=== PATIENT | female | born 1990 | race American Indian/Alaskan Native ===

== ENCOUNTER 2019-04-23 16:31 | Inpatient (IN) | payer MEDICAID ==
[2019-04-23] MEDS ORDERED: LACTATED RINGERS 1,000 ML ONE (17:18)
[2019-04-23] MEDS: LACTATED RINGERS 1,000 ML IV SCH (17:45)
[2019-04-23] MEDS ORDERED: TERBUTALINE 1 MG/1 ML INJ IVP PRN (18:09)
[2019-04-23] MEDS ORDERED: MINERAL OIL 30 ML ORAL LIQD PO PRN (18:09)
[2019-04-23] MEDS ORDERED: AMPICILLIN/NS 2 GM/100 ML 2 GM/100 ML BAG IV ONE (18:09)
[2019-04-23] MEDS ORDERED: BUTORPHANOL 2 MG/1 ML INJ IV PRN (18:09)
[2019-04-23] MEDS ORDERED: ePHEDrine SULFATE 50 MG/1 ML INJ IV PRN (18:09)
[2019-04-23] MEDS ORDERED: LIDOCAINE (2%) 20 MG/1 ML VIAL 20 ML MDV INFILTRATI ONE (18:09)
[2019-04-23] MEDS ORDERED: ONDANSETRON 4 MG/2 ML INJ IV PRN (18:09)
[2019-04-23] MEDS ORDERED: NALOXONE 0.4 MG/1 ML INJ IV PRN (18:09)
[2019-04-23] MEDS ORDERED: TERBUTALINE 1 MG/1 ML INJ SUB-Q PRN (18:09)
--- NOTE | 2019-04-23 18:19 | History and Physical Report ---
History of Present Illness Date of examination: 04/23/19 Date of admission: 04/23/19 16:31 Chief complaint: Sent from the office of [facility] with the recommendation of induction of labor due CHTN with possible superimposed Preeclampsia. Denies HAs, visual changes, and N&V. History of present illness: Early entry to care, co-managed with [facility] due to CHTN, taking Labetolol 100mg PO BID and ASA 81mg daily. course complicated by Anemia, a UTI (GBS), Vitamin D Deficiency, and a abnormal 1hour GTT, followed by a normal 3 hour GTT. Past History Past Medical History: hypertension Past Surgical History: no surgical history Family/Genetic History: none Social history: no significant social history, single - Obstetrical History Expected Date of Delivery: 04/30/19 Actual Gestation: 39 Week(s) 0 Day(s) : 1 Medications and Allergies Allergies Allergy/AdvReac Type Severity Reaction Status Date / Time No Known Allergies Allergy Verified 04/23/19 17:42 Home Medications Medication Instructions Recorded Confirmed Last Taken Type Aspirin [Aspirin BABY CHEW TAB] 81 mg PO QDAY 04/23/19 04/23/19 04/09/19 09:00 History Labetalol [Labetalol 200mg TAB] 200 mg PO BID 04/23/19 04/23/19 04/23/19 13:00 History Pnv,Calcium 72/Iron,Carb/Folic 1 each PO DAILY 04/23/19 04/23/19 04/23/19 History [ Plus Iron Tablet] 0900 Active Meds: Active Medications Butorphanol Tartrate (Stadol) 2 mg IV Q2H PRN PRN Reason: Pain , Severe (7-10) Ephedrine Sulfate (Ephedrine Sulfate) 10 mg IV Q2M PRN PRN Reason: Hypotension Oxytocin/Sodium Chloride (Pitocin/Ns 20 Unit/1000ml Drip) 20 units in 1,000 mls @ 125 mls/hr IV DIRECT DAYANARA Oxytocin/Sodium Chloride (Pitocin/Ns 30 Unit/500ml) 30 units in 500 mls @ 2 mls/hr IV TITR DAYANARA; Protocol Lactated Ringer's (Lactated Ringers) 1,000 mls @ 125 mls/hr IV DIRECT DAYANARA Ampicillin Sodium (Ampicillin/Ns 1 Gm/50 Ml) 1 gm in 50 mls @ 100 mls/hr IV Q4HR [facility]; Protocol Ampicillin Sodium (Ampicillin/Ns 2 Gm/100 Ml) 2 gm in 100 mls @ 100 mls/hr IV ONCE ONE; Protocol Stop: 04/23/19 19:08 Lidocaine (Xylocaine 2%) 20 ml INFILTRATI ONCE ONE Stop: 04/23/19 18:10 Mineral Oil (Mineral Oil) 30 ml PO QHS PRN PRN Reason: Constipation Naloxone HCl (Narcan 0.4 Mg/1 Ml) 0.1 mg IV Q2MIN PRN PRN Reason: Res Rate </= 8 or 02 SAT < 92% Ondansetron HCl (Zofran) 4 mg IV Q8H PRN PRN Reason: Nausea And Vomiting Terbutaline Sulfate (Brethine) 0.25 mg SUB-Q ONCE PRN PRN Reason: Hyperstimulation/Hypertonicity Terbutaline Sulfate (Brethine) 0.25 mg IVP ONCE PRN PRN Reason: Hyperstimulation/Hypertonicity Review of Systems All systems: negative - Vital Signs Vital signs: Vital Signs Temp Resp 98.2 F 12 04/23/19 16:45 04/23/19 16:45 Temp Pulse Resp BP Pulse Ox 98.2 F 80 12 139/93 97 04/23/19 16:45 04/23/19 18:11 04/23/19 16:45 04/23/19 18:08 04/23/19 18:11 - Physical Exam Breasts: Positive: normal Cardiovascular: Regular rate Lungs: Positive: Clear to auscultation, Normal air movement Abdomen: Positive: normal appearance, soft, normal bowel sounds Genitourinary (Female): Positive: normal external genitalia, normal perenium Vagina: Positive: normal moisture Uterus: Positive: enlarged Anus/Rectum: Positive: normal perianal skin Extremities: Positive: normal - Obstetrical FHR: category 1 Uterine Contraction Monitor Mode: External Cervical Dilatation: 0.5 (VTX, Intact) Cervical Effacement Percentage: 20 station: -3 Uterine Contraction Frequency (min): 2-3 Uterine Contraction Pattern: Regular Uterine Tone Measurement Phase: Resting Uterine Contraction Intensity: Mild Results All other labs normal. Assessment and Plan A: IUP @ 39 Weeks Category I Tracing CHTN Maternal Obesity GBS Positive P: Admit to L&D per Routine Orders PIH Labs GBS Prophylaxis Pitocin Induction
[2019-04-23] MEDS ORDERED: OXYTOCIN DRIP 30 UNITS/500 ML BAG IV SCH (19:00)
[2019-04-23] MEDS ORDERED: OXYTOCIN 20 UNIT/1000ML DRIP 20 UNITS/1,000 ML BAG IV SCH (19:00)
[2019-04-23 19:22] LABS: Hematocrit 43.7 % (30.3-42.9); Hemoglobin 14.7 gm/dl (10.1-14.3); Mean Corpuscular HGB Conc 34 % (30-34); Mean Corpuscular Volume 90 fl (79-97); Platelet Count 252 K/mm3 (140-440); Red Blood Count 4.86 M/mm3 (3.65-5.03); Red Cell Distribution Width 14.4 % (13.2-15.2)
[2019-04-23 19:46] LABS: Alanine Aminotransferase 28 units/L (7-56); Uric Acid 3.5 mg/dL (3.5-7.6)
[2019-04-23 20:03] LABS: Bacteria,Urine 1+ /HPF (Negative); Bilirubin,Urine NEG (Negative); Blood,Urine NEG (Negative); Color,Urine Yellow (Yellow); Mucus,Urine FEW /HPF; Protein,Urine <15 mg/dL mg/dL (Negative); Urobilinogen,Urine < 2.0 mg/dL (<2.0)
[2019-04-23] MEDS: AMPICILLIN/NS 1 GM/50 ML 1 GM/50 ML BAG IV SCH (22:00)
[2019-04-24] MEDS ORDERED: ACETAMINOPHEN 325 MG TAB ONE (01:37)
[2019-04-24] MEDS: LACTATED RINGERS 1,000 ML IV SCH ×3 (01:45→18:27)
[2019-04-24] MEDS ORDERED: D5W/LACTATED RINGERS 1,000 ML IV ONE (03:11)
[2019-04-24] MEDS: AMPICILLIN/NS 1 GM/50 ML 1 GM/50 ML BAG IV SCH ×4 (03:45→19:07)
[2019-04-24] MEDS ORDERED: D5W/LACTATED RINGERS 1,000 ML IV SCH (04:00)
[2019-04-24] MEDS ORDERED: LACTATED RINGERS 1,000 ML ONE (08:33)
[2019-04-24] MEDS ORDERED: DINOPROSTONE 10 MG VAG SUPP VG ONE ×2 (11:00→23:39)
[2019-04-25] MEDS: LACTATED RINGERS 1,000 ML IV SCH (06:32)
[2019-04-25] MEDS ORDERED: OXYTOCIN 20 UNIT/1000ML DRIP 20 UNITS/1,000 ML BAG IV SCH (09:00)
[2019-04-25] MEDS ORDERED: LACTATED RINGERS 1,000 ML IV SCH (09:00)
--- NOTE | 2019-04-25 09:03 | Progress Note ---
Subjective - Subjective Date of service: 04/25/19 Principal diagnosis: Preop Note Interval history: Preoperative diagnosis: IUP at 39+2/7 weeks, failed IOL for CHTN, intolerance to labor Planned procedure: Primary low transverse section via pfannenstiel incision Surgeon: Dr Adry Puente Informed consents obtained, patient NPO and special education secretary to OR for procedure. Objective - Vital Signs Vital Signs: Vital Signs - 12hr 04/24/19 04/24/19 04/24/19 21:02 21:07 21:12 Temperature Pulse Rate 64 64 64 Respiratory Rate Blood Pressure O2 Sat by Pulse 100 100 100 Oximetry 04/24/19 04/24/19 04/24/19 21:17 21:20 21:22 Temperature Pulse Rate 67 67 67 Respiratory Rate Blood Pressure 142/85 O2 Sat by Pulse 100 100 Oximetry 04/24/19 04/24/19 04/24/19 21:27 21:31 21:36 Temperature Pulse Rate 63 69 69 Respiratory Rate Blood Pressure O2 Sat by Pulse 99 83 L 86 Oximetry 04/24/19 04/24/19 04/24/19 21:41 21:46 21:51 Temperature Pulse Rate 69 64 64 Respiratory Rate Blood Pressure O2 Sat by Pulse 100 100 99 Oximetry 04/24/19 04/24/19 04/24/19 21:56 22:01 22:06 Temperature Pulse Rate 65 68 63 Respiratory Rate Blood Pressure O2 Sat by Pulse 97 98 100 Oximetry 04/24/19 04/24/19 04/24/19 22:11 22:16 22:19 Temperature Pulse Rate 62 67 59 L Respiratory Rate Blood Pressure 126/69 O2 Sat by Pulse 99 99 Oximetry 04/24/19 04/24/19 04/24/19 22:21 22:26 22:31 Temperature Pulse Rate 60 71 64 Respiratory Rate Blood Pressure O2 Sat by Pulse 100 100 99 Oximetry 04/24/19 04/24/19 04/24/19 22:36 22:41 22:46 Temperature Pulse Rate 62 61 72 Respiratory Rate Blood Pressure O2 Sat by Pulse 98 100 100 Oximetry 04/24/19 04/24/19 04/24/19 22:51 22:56 23:01 Temperature Pulse Rate 66 63 63 Respiratory Rate Blood Pressure O2 Sat by Pulse 98 99 99 Oximetry 04/24/19 04/24/19 04/24/19 23:03 23:06 23:10 Temperature Pulse Rate 73 68 65 Respiratory Rate Blood Pressure 133/69 O2 Sat by Pulse 100 84 Oximetry 04/24/19 04/24/19 04/24/19 23:11 23:16 23:19 Temperature Pulse Rate 73 74 66 Respiratory Rate Blood Pressure 121/60 O2 Sat by Pulse 84 82 L Oximetry 04/24/19 04/24/19 04/24/19 23:21 23:26 23:28 Temperature Pulse Rate 74 79 Respiratory Rate Blood Pressure O2 Sat by Pulse 96 98 86 Oximetry 04/24/19 04/24/19 04/24/19 23:31 23:36 23:41 Temperature Pulse Rate 76 63 69 Respiratory Rate Blood Pressure O2 Sat by Pulse 97 97 97 Oximetry 04/25/19 04/25/19 04/25/19 00:17 00:18 00:22 Temperature Pulse Rate 89 99 H 81 Respiratory Rate Blood Pressure 133/67 O2 Sat by Pulse 98 93 98 Oximetry 04/25/19 04/25/19 04/25/19 00:27 00:32 00:37 Temperature Pulse Rate 76 102 H 91 H Respiratory Rate Blood Pressure O2 Sat by Pulse 99 97 97 Oximetry 04/25/19 04/25/19 04/25/19 00:42 00:44 01:00 Temperature 97.5 F L Pulse Rate 105 H 53 L 95 H Respiratory 16 Rate Blood Pressure O2 Sat by Pulse 97 82 L 96 Oximetry 04/25/19 04/25/19 04/25/19 01:05 01:10 01:15 Temperature Pulse Rate 94 H 81 81 Respiratory Rate Blood Pressure O2 Sat by Pulse 99 99 99 Oximetry 04/25/19 04/25/19 04/25/19 01:19 01:20 01:25 Temperature Pulse Rate 83 77 81 Respiratory Rate Blood Pressure 133/75 O2 Sat by Pulse 100 99 Oximetry 04/25/19 04/25/19 04/25/19 01:30 01:35 01:40 Temperature Pulse Rate 73 75 76 Respiratory Rate Blood Pressure O2 Sat by Pulse 99 99 100 Oximetry 04/25/19 04/25/19 04/25/19 01:45 01:50 01:55 Temperature Pulse Rate 80 84 78 Respiratory Rate Blood Pressure O2 Sat by Pulse 99 100 100 Oximetry 04/25/19 04/25/19 04/25/19 02:00 02:05 02:10 Temperature Pulse Rate 74 73 73 Respiratory Rate Blood Pressure O2 Sat by Pulse 100 100 100 Oximetry 04/25/19 04/25/19 04/25/19 02:15 02:20 02:25 Temperature Pulse Rate 81 68 76 Respiratory Rate Blood Pressure 133/86 O2 Sat by Pulse 100 99 99 Oximetry 04/25/19 04/25/19 04/25/19 02:30 02:35 02:40 Temperature Pulse Rate 67 71 68 Respiratory Rate Blood Pressure O2 Sat by Pulse 100 100 100 Oximetry 04/25/19 04/25/19 04/25/19 02:45 02:50 02:55 Temperature Pulse Rate 98 H 104 H 71 Respiratory Rate Blood Pressure O2 Sat by Pulse 100 98 99 Oximetry 04/25/19 04/25/19 04/25/19 03:00 03:05 03:10 Temperature Pulse Rate 73 70 72 Respiratory Rate Blood Pressure O2 Sat by Pulse 99 99 99 Oximetry 04/25/19 04/25/19 04/25/19 03:15 03:19 03:28 Temperature Pulse Rate 75 88 Respiratory Rate Blood Pressure O2 Sat by Pulse 100 87 82 L Oximetry 04/25/19 04/25/19 04/25/19 03:29 03:34 03:36 Temperature Pulse Rate 93 H 73 88 Respiratory Rate Blood Pressure 138/76 O2 Sat by Pulse 100 99 Oximetry 04/25/19 04/25/19 04/25/19 03:39 03:44 03:49 Temperature Pulse Rate 100 H 80 85 Respiratory Rate Blood Pressure O2 Sat by Pulse 99 97 97 Oximetry 04/25/19 04/25/19 04/25/19 03:54 03:59 04:04 Temperature Pulse Rate 74 76 71 Respiratory Rate Blood Pressure O2 Sat by Pulse 96 96 96 Oximetry 04/25/19 04/25/19 04/25/19 04:09 04:14 04:19 Temperature Pulse Rate 71 74 81 Respiratory Rate Blood Pressure 141/65 O2 Sat by Pulse 96 95 96 Oximetry 04/25/19 04/25/19 04/25/19 04:24 04:29 04:34 Temperature Pulse Rate 73 70 67 Respiratory Rate Blood Pressure O2 Sat by Pulse 96 99 100 Oximetry 04/25/19 04/25/19 04/25/19 04:39 04:44 04:46 Temperature Pulse Rate 67 79 Respiratory Rate Blood Pressure O2 Sat by Pulse 100 100 90 Oximetry 04/25/19 04/25/19 04/25/19 04:50 04:52 04:55 Temperature Pulse Rate 82 42 L 70 Respiratory Rate Blood Pressure O2 Sat by Pulse 81 L 0 L 99 Oximetry 04/25/19 04/25/19 04/25/19 05:00 05:05 05:10 Temperature Pulse Rate 58 L 61 65 Respiratory Rate Blood Pressure O2 Sat by Pulse 99 99 100 Oximetry 04/25/19 04/25/19 04/25/19 05:15 05:19 05:20 Temperature Pulse Rate 58 L 63 63 Respiratory Rate Blood Pressure 112/68 O2 Sat by Pulse 100 100 Oximetry 04/25/19 04/25/19 04/25/19 05:25 05:30 05:35 Temperature Pulse Rate 64 64 59 L Respiratory Rate Blood Pressure O2 Sat by Pulse 99 99 100 Oximetry 04/25/19 04/25/19 04/25/19 05:40 05:45 05:50 Temperature Pulse Rate 60 62 62 Respiratory Rate Blood Pressure O2 Sat by Pulse 98 100 99 Oximetry 04/25/19 04/25/19 04/25/19 05:55 06:00 06:05 Temperature Pulse Rate 70 98 H 30 L Respiratory Rate Blood Pressure O2 Sat by Pulse 98 87 0 L Oximetry 04/25/19 04/25/19 04/25/19 06:09 06:14 06:19 Temperature Pulse Rate 99 H 57 L 65 Respiratory Rate Blood Pressure 118/60 O2 Sat by Pulse 96 100 100 Oximetry 04/25/19 04/25/19 04/25/19 06:24 06:29 06:34 Temperature Pulse Rate 60 60 61 Respiratory Rate Blood Pressure O2 Sat by Pulse 99 99 99 Oximetry 04/25/19 04/25/19 04/25/19 06:39 06:44 06:49 Temperature Pulse Rate 60 60 58 L Respiratory Rate Blood Pressure O2 Sat by Pulse 100 99 100 Oximetry 04/25/19 04/25/19 04/25/19 06:54 06:59 07:04 Temperature Pulse Rate 61 61 63 Respiratory Rate Blood Pressure O2 Sat by Pulse 99 99 99 Oximetry 04/25/19 04/25/19 04/25/19 07:09 07:14 07:17 Temperature Pulse Rate 63 60 Respiratory Rate Blood Pressure O2 Sat by Pulse 99 99 84 Oximetry 04/25/19 04/25/19 04/25/19 07:23 07:24 07:29 Temperature Pulse Rate 66 69 Respiratory Rate Blood Pressure O2 Sat by Pulse 86 97 98 Oximetry 04/25/19 04/25/19 04/25/19 07:34 07:39 07:44 Temperature Pulse Rate 66 68 66 Respiratory Rate Blood Pressure O2 Sat by Pulse 96 98 99 Oximetry 04/25/19 04/25/19 04/25/19 07:48 07:49 07:54 Temperature Pulse Rate 70 61 58 L Respiratory Rate Blood Pressure 132/64 O2 Sat by Pulse 98 99 Oximetry 04/25/19 04/25/19 04/25/19 07:59 08:04 08:09 Temperature Pulse Rate 61 60 57 L Respiratory Rate Blood Pressure O2 Sat by Pulse 98 99 99 Oximetry 04/25/19 04/25/19 04/25/19 08:14 08:19 08:20 Temperature Pulse Rate 58 L 58 L 55 L Respiratory Rate Blood Pressure 131/69 O2 Sat by Pulse 99 100 93 Oximetry 04/25/19 04/25/19 04/25/19 08:24 08:29 08:34 Temperature Pulse Rate 56 L 56 L 66 Respiratory Rate Blood Pressure O2 Sat by Pulse 99 100 99 Oximetry 04/25/19 08:36 Temperature Pulse Rate 63 Respiratory Rate Blood Pressure O2 Sat by Pulse 86 Oximetry - Labs Labs: Abnormal Labs 04/23/19 04/23/19 17:30 17:30 Hgb 14.7 H Hct 43.7 H Creatinine 0.4 L Lactate Dehydrogenase 233 H
[2019-04-25] MEDS ORDERED: ceFAZolin/Water 2 GM/20 ML 2 GM/20 ML SYRINGE IV NR (09:30)
[2019-04-25] MEDS ORDERED: FAMOTIDINE 20 MG/2 ML INJ IV NR (09:30)
[2019-04-25] MEDS ORDERED: METOCLOPRAMIDE 10 MG/2 ML INJ IV NR (09:30)
[2019-04-25] MEDS ORDERED: BICITRA ORAL LIQD 30ML PO NR (09:30)
[2019-04-25 09:54] LABS: Basophils % (Auto) 0.4 % (0.0-1.8); Eosinophils % (Auto) 0.2 % (0.0-4.3); Hematocrit 42.4 % (30.3-42.9); Lymphocytes # (Auto) 1.4 K/mm3 (1.2-5.4); Mean Corpuscular HGB Conc 33 % (30-34); Mean Corpuscular Volume 89 fl (79-97); Monocytes # (Auto) 0.7 K/mm3 (0.0-0.8); Monocytes % (Auto) 7.4 % (0.0-7.3); Platelet Count 216 K/mm3 (140-440); Red Blood Count 4.75 M/mm3 (3.65-5.03); Red Cell Distribution Width 14.3 % (13.2-15.2)
--- NOTE | 2019-04-25 10:05 | Anesthesia Consultation ---
Anesthesia Consult and Med Hx Date of service: 04/25/19 - Airway Anesthetic Teeth Evaluation: Good ROM Head & Neck: Adequate Mental/Hyoid Distance: Adequate Mallampati Class: Class III Intubation Access Assessment: Probably Good - Pulmonary Exam CTA: Yes - Cardiac Exam Cardiac Exam: RRR - Pre-Operative Health Status ASA Pre-Surgery Classification: ASA3, Emergency Proposed Anesthetic Plan: Spinal - Pulmonary Hx Smoking: No Hx Asthma: No Hx Respiratory Symptoms: No SOB: No COPD: No Home Oxygen Therapy: No Hx Pneumonia: No Hx Sleep Apnea: No - Cardiovascular System Hx Hypertension: Yes (POOR HISTORIAN) Hx Coronary Artery Disease: No Hx Heart Attack/AMI: No Hx Angina: No Hx Percutaneous Transluminal Coronary Angioplasty (PTCA): No Hx Cardia Arrhythmia: No Hx Pacemaker: No Hx Internal Defibrillator: No Hx Valvular Heart Disease: No Hx Heart Murmur: No Hx Peripheral Vascular Disease: No - Central Nervous System Hx Neuromuscular Disorder: No Hx Seizures: No CVA: No Hx Back Pain: No Hx Psychiatric Problems: No - Gastrointestinal Hx Ulcer: No Hx Gastroesophageal Reflux Disease: No - Endocrine Hx Renal Disease: No Hx End Stage Renal Disease: No Hx Cirrhosis: No Hx Liver Disease: No Hx Insulin Dependent Diabetes: No Hx Non-Insulin Dependent Diabetes: No Hx Thyroid Disease: No Hx Hypothyroidism: No Hx Hyperthyroidism: No - Hematic Hx Anemia: Yes Hx Sickle Cell Disease: No - Other Systems Hx Alcohol Use: No Hx Substance Use: No Hx Cancer: No Hx Obesity: Yes
--- NOTE | 2019-04-25 10:07 | Anesthesia Day of Surgery ---
Anesthesia Day of Surgery - Day of Surgery Patient Examined: Yes Patient H&P Reviewed: Yes Patient is NPO: Yes Beta Blockers: No Cardiac Clearance: No Pulmonary Clearance: No Andres's Test: N/A
[2019-04-25] MEDS ORDERED: KETOROLAC 30 MG/1 ML INJ ONE (10:20)
[2019-04-25] MEDS ORDERED: ONDANSETRON 4 MG/2 ML INJ ONE (10:20)
[2019-04-25] MEDS ORDERED: DEXMEDETOMIDINE 200 MCG/2 ML VIAL IV ONE (10:20)
[2019-04-25] MEDS ORDERED: diphenhydrAMINE 50 MG/ML VIAL IV PRN (10:30)
[2019-04-25] MEDS ORDERED: PROMETHAZINE 25 MG TAB PO PRN (10:30)
[2019-04-25] MEDS ORDERED: PROMETHAZINE 25 MG RECT SUPP PR PRN (10:30)
[2019-04-25] MEDS ORDERED: CARBOPROST TROMETHAMINE 250 MCG/1 ML INJ IM PRN (10:30)
[2019-04-25] MEDS ORDERED: HYDROmorphone 1 MG/1 ML INJ IV PRN (10:30)
[2019-04-25] MEDS ORDERED: ONDANSETRON 4 MG/2 ML INJ IV PRN (10:30)
[2019-04-25] MEDS ORDERED: PHENYLEPHRINE/NS 1,000 MCG/10 ML SYRINGE (OR USE) IV ONE (10:30)
[2019-04-25] MEDS ORDERED: ceFAZolin/STERILE WATER 2 GM/20 ML SYRINGE IV ONE (10:32)
[2019-04-25] MEDS ORDERED: WATER FOR IRRIG STERILE 1,500 ML BOTTLE IR ONE (10:52)
[2019-04-25] MEDS ORDERED: SODIUM CHLORIDE 0.9% IRR 1,500 ML BOTTLE IR ONE (10:52)
--- NOTE | 2019-04-25 11:44 | Procedure Note ---
OB Delivery Note - Delivery Date of Delivery: 04/25/19 Surgeon: COLTEN RUIZ Estimated blood loss: other (800cc) - Section Preop diagnosis: nonreassuring FHR tracing, other (IUP at 39+ weeks, failed IOL< CHTN, intolerance to labor) Postop diagnosis: same section procedure: primary low transverse Disposition: PACU Complications: none Narrative: Preoperative diagnosis: IUP at 39+2/7 weeks, failed IOL, intolerance to labor Postoperative diagnosis: same Procedure: Primary Low Transverse section via Pfannenstiel incision Surgeon: Dr Colten Ruiz Assist: Scrub Anesthesia: Spinal Findings: viable female, weight 3248gms and 8/9 Normal Uterus, tubes and ovaries. Complications: none Drains: Newman to gravity EBL: 800mL IV Fluids: 1300ml Urine Output:100ml Procedure: Patient gave informed consent in OB room 2009. All questions and concerns addressed. R/B/C reviewed. She was taken to the OR where she received excellent spinal anesthesia. She was placed in the dorsal supine position with a leftward tilt. She was prepped and draped in a sterile fashion. A time out was verified. A Pfannenstiel skin incision was made, taken down through the underlying fascia sharply and extended laterally with curved Hudson scissors. The superior and inferior aspect of the fascial incision was grasped with Kentrell clamps and the rectus muscles dissected off sharply. The abdomen was entered sharply in the midline and extended laterally and inferiorly sharply with good visualization of the underlying structures.A bladder blade was inserted. The uterine incision was made sharply with a scalpel, taken down to the amnion and extended inferiorly and superiorly bluntly. The bladder blade removed and the baby delivered atraumatically. No nuchal cord, spontaneous cry at delivery. Cord clamped and cut and baby handed to waiting audio visual specialist staff. Cord bloosd and cod gasses obtained. An intact placenta with three vessel cord delivered manually. The uterus cleared of all clots and debris. The uterus was exteriorized. The uterine incision closed with 2 layers of 0-Vicryl with excellent hemostasis. The abdomen was irrigated with warm normal saline and the uterus placed back into the abdomen. A second look at the uterine incision assured hemostasis. The peritoneum was closed with 3-0 Vicryl, the fascia closed with 0-Vicryl in the usual fashion and the subcuticular structures closed with 0-Vicryl interrrupted sutures. The skin closed with sandor and a pressure dressing applied. All sponge and needle counts correctx3. Mom and baby stable to . EBL 800ml. Jesus SCHWAB
--- NOTE | 2019-04-25 11:55 | Post Anesthesia Evaluation ---
- Post Anesthesia Evaluation Patient Participated: Yes Airway Patent: Yes Stable Respiratory Function: Yes Nausea/Vomiting: No Temp > 96.8F: Yes Pain Manageable: Yes Adequeate Hydration: Yes Anesthesia Complications: No Block Receding Appropriately: Yes Patient on Ventilator: No
[2019-04-25] MEDS ORDERED: D5W/LACTATED RINGERS 1,000 ML IV ONE (13:49)
[2019-04-25] MEDS: HYDROmorphone 1 MG/1 ML INJ IV PRN ×2 (17:54→22:17)
[2019-04-26 02:06] LABS: Hematocrit 35.6 % (30.3-42.9); Hemoglobin 12.1 gm/dl (10.1-14.3)
[2019-04-26] MEDS: HYDROmorphone 1 MG/1 ML INJ IV PRN ×2 (04:23→08:55)
--- NOTE | 2019-04-26 12:52 | Progress Note ---
Assessment and Plan A: S/P primary c/section for failed IOL, intolerance to labor P: routine postop care. Maternal status reassuring at bedside. Jesus SCHWAB Subjective - Subjective Date of service: 04/26/19 Principal diagnosis: Preop Note Interval history: POD#1 doing well no complaints Objective - Vital Signs Vital Signs: Vital Signs - 12hr 04/26/19 04/26/19 04/26/19 01:49 04:23 04:53 Temperature 98.2 F Pulse Rate 90 Respiratory 20 18 18 Rate Blood Pressure 139/85 O2 Sat by Pulse 100 Oximetry 04/26/19 04/26/19 04/26/19 06:19 08:55 09:28 Temperature 98.5 F 99.2 F Pulse Rate 109 H 87 Respiratory 18 20 18 Rate Blood Pressure 127/84 132/84 O2 Sat by Pulse 97 95 Oximetry 04/26/19 10:15 Temperature Pulse Rate 116 H Respiratory Rate Blood Pressure 136/90 O2 Sat by Pulse Oximetry - Exam Breasts: deferred Cardiovascular: Regular rate Lungs: Clear to auscultation Abdomen: Present: normal appearance, normal bowel sounds Uterus: Present: normal, firm, fundal height at umbilicus Deep Tendon Reflex Grade: Normal +2 - Labs Labs: Abnormal Labs 04/23/19 04/23/19 04/25/19 17:30 17:30 09:15 Hgb 14.7 H Hct 43.7 H [place] % (Auto) 7.4 H Seg Neutrophils % 78.0 H POC ABG pH POC ABG pCO2 Creatinine 0.4 L Lactate Dehydrogenase 233 H 04/25/19 04/25/19 11:23 11:27 Hgb Hct [place] % (Auto) Seg Neutrophils % POC ABG pH 7.340 L 7.314 L POC ABG pCO2 48.1 H Creatinine Lactate Dehydrogenase Laboratory Results - last 24 hr 04/26/19 01:17 Hgb 12.1 Hct 35.6 D
[2019-04-26] MEDS: oxyCODONE /ACETAMINOPHEN 5-325MG TAB PO PRN ×2 (13:37→20:55)
[2019-04-27] MEDS: oxyCODONE /ACETAMINOPHEN 5-325MG TAB PO PRN (04:30)
--- NOTE | 2019-04-27 09:30 | Progress Note ---
Assessment and Plan A: day 2 S/P primary low transverse section. Intermittent mild tachycardia. Chronic hypertension; BPs controlled with Labetalol. P: CBC, UA, urine C & S. Continue current management. Will get EKG if HR does not decrease with PO Motrin (pt. has temp. of 99.0). Subjective - Subjective Date of service: 04/27/19 Principal diagnosis: /postop day 2 S/P primary low transverse section Interval history: /postop day 2 S/P primary low transverse section. Doing well. Patient reports a small amount of lochia. Voiding without difficulty, passing gas, ambulating well, tolerating regular diet. Patient denies headache, chest pain, cough, shortness of breath, abdominal pain, leg pain, nausea or vomiting, or heavy vaginal bleeding. Patient reports: appetite normal, voiding normally, pain well controlled, flatus, ambulating normally, no dizzy ambulation, no nauseated [place]: doing well Objective - Vital Signs Latest vital signs: Vital Signs Temp Pulse Resp BP Pulse Ox 04/27/19 07:48 99.0 F 100 H 18 120/75 97 04/27/19 05:30 18 04/27/19 05:25 98.9 F 92 H 18 118/65 97 04/27/19 04:30 18 04/27/19 00:43 98.3 F 108 H 18 106/64 97 04/26/19 21:55 116 H 128/85 04/26/19 21:54 128/85 04/26/19 20:55 18 04/26/19 17:59 99.3 F 101 H 18 130/78 98 04/26/19 13:37 20 04/26/19 10:15 116 H 136/90 04/26/19 09:28 99.2 F 87 18 132/84 95 Intake and Output 04/26/19 04/27/19 04/27/19 23:59 07:59 15:59 Intake Total 1080 480 Balance 1080 480 Intake: Oral 600 Intake, Free Water 480 480 Other: Total, Intake Amount 600 # Voids Void 3 2 - Exam Narrative Exam: Intermittent mild tachycardia noted on review of vital signs. Cardiovascular: Present: Regular rate, Normal S1, Normal S2, No murmurs, Other Lungs: Present: Clear to auscultation Abdomen: Present: normal appearance, soft, normal bowel sounds. Absent: distention, tenderness, guarding, rigidity Uterus: Present: normal, firm, fundal height below umbilicus. Absent: bogginess, tenderness Extremities: Present: normal, edema (bilateral pedal edema). Absent: tenderness Incision: Present: normal, dry, intact, dressed
[2019-04-27] MEDS: IBUPROFEN 800 MG TAB PO PRN ×3 (09:57→22:18)
[2019-04-27 11:18] LABS: Basophils % (Auto) 0.3 % (0.0-1.8); Eosinophils # (Auto) 0.1 K/mm3 (0.0-0.4); Eosinophils % (Auto) 1.3 % (0.0-4.3); Hematocrit 38.1 % (30.3-42.9); Hemoglobin 12.7 gm/dl (10.1-14.3); Lymphocytes # (Auto) 2.1 K/mm3 (1.2-5.4); Lymphocytes % (Auto) 18.8 % (13.4-35.0); Mean Corpuscular HGB Conc 34 % (30-34); Mean Corpuscular Volume 89 fl (79-97); Monocytes # (Auto) 0.8 K/mm3 (0.0-0.8); Platelet Count 223 K/mm3 (140-440); Red Blood Count 4.28 M/mm3 (3.65-5.03); Red Cell Distribution Width 14.4 % (13.2-15.2)
[2019-04-27 12:38] LABS: Bilirubin,Urine NEG (Negative); Blood,Urine LG (Negative); Color,Urine Amber (Yellow); Mucus,Urine FEW /HPF
[2019-04-27 12:41] LABS: RBC,Urine > 182.0 /HPF (0.0-6.0)
--- NOTE | 2019-04-27 14:31 | Event Note ---
Date: 04/27/19 Per RN, EKG shows sinus tachycardia. + WBCs on UA. Pt. to have Rocephin 1 gram IV QD.
[2019-04-27] MEDS ORDERED: SODIUM CHLORIDE 0.9% 100 ML IVPB IV SCH (15:00)
[2019-04-27] MEDS ORDERED: SODIUM CHLORIDE 0.9% 1000 ML 1,000 ML IV SCH (15:00)
[2019-04-27] MEDS ORDERED: cefTRIAXone/NS 1 GM/50 ML 1 GM/50 ML BAG IV SCH (15:00)
[2019-04-27] MEDS: cefTRIAXone/NS 1 GM/50 ML 1 GM/50 ML BAG IV SCH (15:00)
[2019-04-27 15:51] LABS: Alanine Aminotransferase 21 units/L (7-56); Albumin 2.6 g/dL (3.9-5); BUN/Creatinine Ratio 10; Blood Urea Nitrogen 5 mg/dL (7-17); Calcium 8.4 mg/dL (8.4-10.2); Hemolysis Index 8
[2019-04-28] MEDS: oxyCODONE /ACETAMINOPHEN 5-325MG TAB PO PRN (09:54)
[2019-04-28] MEDS: cefTRIAXone/NS 1 GM/50 ML 1 GM/50 ML BAG IV SCH (09:55)
--- NOTE | 2019-04-28 10:12 | Discharge Summary ---
Providers - Providers Date of Admission: 04/23/19 16:31 Date of discharge: 04/28/19 (1200) Attending physician: DANYELLE ROSS MD Primary care physician: DANYELLE ROSS MD Hospitalization Reason for admission: induction of labor (secondary to HTN), IUP at term Delivery: Procedure: primary low transverse (secondary to failed induction of labor) Episiotomy: none Laceration: none Incision: dry, intact (sandor intact, no signs of infections noted) Other procedures: none complications: none Discharge diagnosis: other (S/P primary C/S) baby: female Condition at discharge: Stable Disposition: DC- TO HOME OR SELFCARE - Discharge Diagnoses (1) S/P primary low transverse Status: Acute Plan - Provider Discharge Summary Activity: routine, no sex for 6 weeks, no heavy lifting 4 weeks, no strenuous exercise Diet: routine Instructions: routine Additional instructions: [] Smoking cessation referral if applicable(refer to patient education folder for contact #) [] Refer to [facility] Book[facility] Call your doctor immediately for: * Fever > 100.5 * Heavy vaginal bleeding ( >1 pad per hour) * Severe persistent headache * Shortness of breath * Reddened, hot, painful area to leg or breast * Drainage or odor from incision. * Keep incision clean and dry at all times and follow doctor's instructions regarding bathing/showering - Follow up plan Follow up: DANYELLE ROSS MD [Primary Care Provider] - 7 Days
[2019-04-28 15:07] VITALS: BP 137/95
== END 2019-04-28 17:41 | disposition home or self-care (01) | DRG 765 ==
LOC: LD 16:31 → OB 04-25 13:59
PROVIDERS: ADMIT Obstetrics & Gynecology; ATTEND Obstetrics & Gynecology
PROC: 10D00Z1 Extraction of Products of Conception, Low, Open Approach (ICD-10-PCS; principal; 2019-04-25)
PROC: 4A033R1 Measurement of Arterial Saturation, Peripheral, Percutaneous Approach (ICD-10-PCS; 2019-04-25)
DX: O10.92 Unspecified pre-existing hypertension complicating childbirth (principal); O99.43 Diseases of the circulatory system complicating the puerperium; O86.20 Urinary tract infection following delivery, unspecified; Z3A.39 39 weeks gestation of pregnancy; Z37.0 Single live birth; O61.9 Failed induction of labor, unspecified; O99.02 Anemia complicating childbirth; D64.9 Anemia, unspecified; O99.824 Streptococcus B carrier state complicating childbirth; O99.214 Obesity complicating childbirth; E66.9 Obesity, unspecified; O76 Abnormality in fetal heart rate and rhythm complicating labor and delivery; R00.0 Tachycardia, unspecified
CPT/HCPCS: 36415; 80053; 81001; 82565; 82803; 83615; 84450; 84460; 84550; 85014; 85018; 85025; 85027; 86850; 86900; 86901; 87076; 87086; 87186; 93005; 93010; G0378; J0290; J0595; J0690; J0696; J1170; J1885; J2370; J2405; J2590; J2765; J3105; J3490; J7030; J7120; J7121